=== PATIENT | male | born 1970 | race Caucasian/White ===

== ENCOUNTER → 2020-01-13 11:27 | Outpatient (BNVA) | payer BC, SELFPAY | PROVIDERS: Family Provider Family Medicine; PCP Family Medicine; Visit Provider Nurse Practitioner Family | DX: N45.1 Epididymitis (principal); R10.9 Unspecified abdominal pain | CPT/HCPCS: 81000 ==

== ENCOUNTER → 2020-06-11 10:09 | Outpatient (BNVA) | payer BC, SELFPAY | PROVIDERS: Family Provider Family Medicine; PCP Family Medicine; Visit Provider Nurse Practitioner | DX: N39.0 Urinary tract infection, site not specified (principal); N45.1 Epididymitis | CPT/HCPCS: 81000 ==

== ENCOUNTER → 2020-07-11 15:25 | Outpatient (BNVA) | payer BC, SELFPAY | PROVIDERS: Family Provider Family Medicine; PCP Family Medicine; Referring Provider Family Medicine; Visit Provider Urology | DX: N45.1 Epididymitis (principal); R10.32 Left lower quadrant pain; R10.12 Left upper quadrant pain; N50.819 Testicular pain, unspecified | CPT/HCPCS: 81003 ==

== ENCOUNTER 2020-08-21 09:57 | Outpatient (CLI) | payer BC, SELFPAY ==
--- NOTE | 2020-08-21 10:00 | XRR_ITS ---
PROCEDURE INFORMATION: Exam: XR Abdomen, 1 View Exam date and time: 08/21/2020 10:04 AM Age: 50 years old Clinical indication: Abdominal pain; Generalized; Prior surgery; Surgery type: Clive on right side; Additional info: Left groin and upper quaderant pain TECHNIQUE: Imaging protocol: XR of the abdomen. Views: Frontal supine view of the abdomen. 1 View. COMPARISON: No relevant prior studies available. FINDINGS: Gastrointestinal tract: Normal. No bowel dilation. Bones/joints: There is mild lumbar scoliosis convex to the right. XR/XR KUB [id number] IMPRESSION: No acute abnormalities are seen in the abdomen.
--- NOTE | 2020-08-21 10:15 | US_ITS ---
NOTE: Report was unsigned for reason: Order was edited. Original Signature date and time was: 08/21/20 @ 1100 WS: [id number] ULTRASOUND RENAL TECHNIQUE: Ultrasound examination of both kidneys. CLINICAL INFORMATION: GROIN AND UPPER QUADERANT PAIN COMPARISON: None. FINDINGS: RIGHT: Right kidney is normal in size and appearance. Echogenicity: Normal. Cortical thickness: 2.3 cm; Normal. Hydronephrosis: None. Perinephric fluid: None. Right kidney measures: 13.3 cm x 6.7 cm x 6.2 cm. LEFT: Left kidney is normal in size and appearance. Echogenicity: Normal. Cortical thickness: 2.2 cm; Normal. Hydronephrosis: None. Perinephric fluid: None. Left kidney measures: 13.4 cm x 5.9 cm x 6.1 cm. Normal visualized aorta. Prevoid bladder volume 326 cc. Post void bladder volume 22 cc. [facility] US/US renal BI* [id number] IMPRESSION: 1. Normal renal ultrasound 2. Post void bladder volume 22 cc.
--- NOTE | 2020-08-21 11:00 | US_ITS ---
WS: [id number] SCROTAL ULTRASOUND EXAMINATION CLINICAL INFORMATION: LEFT GROIN PAIN COMPARISON: None. FINDINGS: TESTES Normal in size and echotexture, without focal lesion. Color Doppler: Normal color Doppler flow pattern. Right testes size: 4.7 cm x 3.4 cm x 2.6 cm. Left testes size: 4.4 cm x 3.0 cm x 2.6 cm. EPIDIDYMIDES Prominent left epididymis with some edema and increased vascularity. Recommend correlation for left e pididymitis. Right epididymis size: 1.2 cm x cm x cm. Left epididymitis size: 1.3 cm x 1.5 cm x cm. HYDROCELE Moderate left VARICOCELE None. OTHER FINDINGS None. US/US scrotum [id number] IMPRESSION: 1. Moderate left testicular hydrocele measuring 5.1 x 1.8 cm with some interna l debris. 2. Prominent left epididymis with some edema and increased vascularity. Findin gs suspicious for left epididymitis. 3. Testicles are otherwise normal in appearance with normal echogenicity.
== END 2020-08-21 09:58 | disposition home or self-care (01) ==
LOC: US 09:59
PROVIDERS: Family Provider Family Medicine; PCP Family Medicine; Visit Provider Urology
DX: R10.12 Left upper quadrant pain (principal); R10.32 Left lower quadrant pain; N43.3 Hydrocele, unspecified; N45.1 Epididymitis; R60.0 Localized edema
CPT/HCPCS: 74018; 76770; 76857; 76870; 81003